=== PATIENT | female | born 1960 ===

== ENCOUNTER 2020-08-25 15:27 | Emergency (ER) | payer BC, OTHER ==
[2020-08-25] MEDS ORDERED: Boostrix 0.5 ML (Tdap) VIAL ONE (15:44)
[2020-08-25] MEDS ORDERED: Lidocaine 1% w/Epinephrine 1:100K 20 ML VIAL ONE (15:44)
[2020-08-25] MEDS ORDERED: HYDROcodone/Acetaminophen 5/325 mg Tablet ONE (16:52)
[2020-08-25] MEDS ORDERED: Bacitracin 1 PK ONE ×2 (17:08→18:07)
== END 2020-08-25 17:25 | disposition home or self-care (01) ==
LOC: ERS 15:27
DX: S06.0X0A Concussion without loss of consciousness, initial encounter (principal); S01.81XA Laceration without foreign body of other part of head, initial encounter; Z23 Encounter for immunization; W01.198A Fall on same level from slipping, tripping and stumbling with subsequent striking against other object, initial encounter; Y92.481 Parking lot as the place of occurrence of the external cause
CPT/HCPCS: 70450; 90471; 90715